=== PATIENT | male | born 1975 | race Caucasian/White ===

== ENCOUNTER 2016-12-16 13:19 | Emergency (ER) | payer SELFPAY ==
--- NOTE | 2016-12-16 14:03 | EDPHY ---
HPI/HX/ROS/PE/MDM Narrative: CHIEF COMPLAINT: Syncope, forehead laceration HISTORY OF PRESENT ILLNESS: This patient is a 41 year old man presenting with acute forehead laceration after syncopal episode this afternoon. The patient was sitting in his office meditating and practicing breathing exercises. He took a deep breath in, held his breath for a few minutes, turned his head and torso, and became lightheaded and had a syncopal episode. He fell to the ground and struck his forehead on a PVC pipe on the ground. He sustained a small laceration above the right eyebrow. Otherwise he has no acute complaints or concerns. He denies headache, neck pain, vomiting, chest pain, shortness of breath, or other concerns. Patient denies a current headache, neck pain, lightheadedness, numbness or tingling, weakness, visual difficulties, facial numbness, double vision, chest pain, shortness of breath, or palpitations. REVIEW OF SYSTEMS: Aside from elements discussed in the HPI, a comprehensive 10-point review of systems was reviewed and is negative. PAST MEDICAL HISTORY: Denies SOCIAL HISTORY: Non-smoker, no alcohol, no drug use, PCP is Dr. Sung VITAL SIGNS: Reviewed by me GENERAL: Well-developed, well-nourished, resting comfortably in no respiratory distress. HEENT: 1.5cm laceration over the right eyebrow. Eyes: No icterus, no injection. Mouth: moist mucous membranes. No erythema or lesions. Neck: supple with no adenopathy. No carotid bruits. LUNGS: Clear to auscultation bilaterally, no wheezes, rhonchi or rales. CARDIAC: Regular rate and rhythm, no rubs, murmurs or gallops. ABDOMEN: Soft, nontender, nondistended, bowel sounds normal. BACK: No CVA tenderness. EXTREMITIES: No trauma. No edema. Range of motion is normal throughout. NEURO: Alert and orientedx3, cranial nerves 2-12 are intact. No Raúl syndrome. Normal strength and sensation in all four extremities, facial expression symmetric, normal gait.. SKIN: Warm and dry, no rash. PSYCHIATRIC: Normal mentation, no agitation. Portions of this note were transcribed by a durable medical equipment repairer. I personally performed a history, physical exam, medical decision making, and confirmed accuracy of information the transcribed note. (Nancy Porras) ED Course: I was asked by Dr. Nancy Porras to repair the laceration to the patient's right eyebrow. Laceration repair. Verbal consent was obtained from the patient. The 3 cm laceration on the right eyebrow was anesthetized using 1% lidocaine with epinephrine. The wound was irrigated with saline, draped and explored to its base with a gloved finger. There were no deep structures involved. The wound was repaired with 6 0 Prolene, 9 sutures. The wound repair was simple. The procedure was performed by myself. (Emi Cavazos) MDM: 41-year-old male presenting the emergency department with a syncopal episode after what sounds like a Valsalva manuever accompanied by turning of the head and carotid sinus stimulation. I suspect that patient most likely had a vagal stimulus which resulted in syncopal episode. Patient reports feeling lightheaded, as if he might pass out, fell forward, and had a very brief loss of consciousness. Patient denies any significant past medical history. No history of hypertension. No history of neck pain, denies any recent chiropractic maneuvers. He has a normal exam with exception of forehead laceration. He has stable vital signs. He is not bradycardic. He is not hypotensive. Patient's laceration was repaired by BARRIE Hutchins. Patient feels comfortable being discharged. He understands importance of not repeating the same maneuver. Differential diagnosis of the patient's presenting complaint was considered including but not limited to syncope caused by vasovagal syncope, arrhythmia, dehydration, and blood loss, or transient loss of consciousness secondary to carotid artery compression or injury. Patient has no neurologic complaints at this time. His laceration was repaired and he was discharged with precautions. (Nancy Porras) General Time Seen by Provider: 12/16/16 13:48 Initial Vital Signs: Initial Vital Signs Temperature (C) 36.7 C 12/16/16 13:21 Heart Rate 56 L 12/16/16 13:21 Respiratory Rate 16 12/16/16 13:21 Blood Pressure 134/74 H 12/16/16 13:21 O2 Sat (%) 98 12/16/16 13:21 O2 Delivery Mode Room Air Allergies/Adverse Reactions: No Known Allergies Allergy (Unverified 04/22/17 13:23) Home Medications: Medication Instructions Recorded NK [No Known Home Meds] 12/16/16 Departure - Departure Disposition: Home, Routine, Self-Care Clinical Impression: Facial laceration Qualifiers: Encounter type: initial encounter Qualified Code(s): S01.81XA - Laceration without foreign body of other part of head, initial encounter Head injury without concussion or intracranial hemorrhage Qualifiers: Encounter type: initial encounter Qualified Code(s): S09.90XA - Unspecified injury of head, initial encounter Syncope Qualifiers: Syncope type: carotid sinus syncope Qualified Code(s): G90.01 - Carotid sinus syncope Condition: Good Instructions: Care For Your Stitches (ED), Stitches Removal (ED), Head Injury ( ED), Facial Laceration (ED) Additional Instructions: Do not hold your breath and turn your neck at the same time. Sutures out in 5 days. Return to the Emergency Department for severe headache, vomiting, vision changes, confusion, dizziness, weakness in arms or legs, speech difficulties, fever, redness, discharge from wound, increasing pain or other worsening of condition. Referrals: Sneha Sung MD [Primary Care Provider] - As per Instructions Report Scribed for: Nancy Porras Report Scribed by: Kate Cleary Date of Report: 12/16/16 Time of Report: 13:54
[2016-12-16 15:28] VITALS: BP 124/76; PULSE 53; RESP 12; TEMP 97.9; O2SAT 97
== END 2016-12-16 15:26 | disposition home or self-care (01) ==
PROC: 0HQ1XZZ Repair Face Skin, External Approach (ICD-10-PCS; principal; 2016-12-16)
DX: S01.81XA Laceration without foreign body of other part of head, initial encounter (principal); G90.01 Carotid sinus syncope; W01.198A Fall on same level from slipping, tripping and stumbling with subsequent striking against other object, initial encounter; Y92.69 Other specified industrial and construction area as the place of occurrence of the external cause; Y93.89 Activity, other specified